=== PATIENT | female | born 1965 | race Caucasian/White ===

== ENCOUNTER → 2020-04-09 10:33 | Outpatient (BNVA) | payer MEDICARE, MEDICAID, SELFPAY | PROVIDERS: PCP Neuromusculoskeletal Medicine & OMM; Referring Provider Neuromusculoskeletal Medicine & OMM; Visit Provider Orthopaedic Surgery | DX: M70.51 Other bursitis of knee, right knee (principal); M70.52 Other bursitis of knee, left knee; E11.9 Type 2 diabetes mellitus without complications; I10 Essential (primary) hypertension | CPT/HCPCS: 99214 ==